=== PATIENT | female | born 1955 | race Caucasian/White ===

== ENCOUNTER 2017-04-18 19:47 | Emergency (ER) | payer BC ==
[2017-04-18 19:57] VITALS: BP 119/65
[2017-04-18] MEDS ORDERED: BUFFERED LIDOCAINE 10 ML SYRINGE SUBQ STA (20:02)
[2017-04-18] MEDS ORDERED: TETANUS/DIPHTHERIA/PERTUSSIS 0.5 ML SYRINGE IM ONE (20:02)
--- NOTE | 2017-04-18 20:03 | ED Physician Documentation ---
PD HPI UPPER EXT INJURY - Stated complaint Stated Complaint: FINGER INJ - Chief complaint Chief Complaint: Laceration - History obtained from History obtained from: Patient - History of Present Illness Location: Other (Right-handed woman with unclear tetanus status cut the second and third fingers of her right hand while driving a knife at home just prior to arrival.) Review of Systems Constitutional: denies: Fever, Chills GI: reports: Reviewed and negative : reports: Reviewed and negative PD PAST MEDICAL HISTORY - Past Medical History Past Medical History: No - Past Surgical History Ortho: Other - Present Medications Home Medications: Ambulatory Orders Medication Instructions Recorded Confirmed No Known Home Medications [No 04/18/17 04/18/17 Known Home Medications] - Allergies Allergies/Adverse Reactions: Allergies Allergy/AdvReac Type Severity Reaction Status Date / Time No Known Drug Allergies Allergy Verified 04/18/17 19:53 - Social History Does the pt smoke?: Yes Smoking Status: Current every day smoker Does the pt drink ETOH?: No Substance Use and Type: Marijuana - Immunizations Immunizations are current?: Yes PD ED PE NORMAL - Vitals Vital signs reviewed: Yes - General General: Alert and oriented X 3, No acute distress - Extremities Extremities: Other (She has lacerations on the dorsal radial surfaces of the second and third digits just distal to the PIP with normal neurovascular status distal to these. On exploration she has a tiny tendon libra in the extensor tendon of the third digit and a more significant but still less than 30% laceration on the second digit. Extensor tendon function in both digits is intact.) - Neuro Neuro: Alert and oriented X 3, Normal speech Results - Vitals Vitals: Vital Signs - 24 hr 04/18/17 19:49 Temperature 36.8 C Heart Rate 68 Respiratory 18 Rate Blood Pressure 119/65 O2 Saturation 98 Oxygen O2 Source Room air Procedures - Laceration (location) Second and third fingers Length in cm: 3 Wound type: Other (about 1cm 3rd digit and 2cm 2nd digit) Neurovascular status: Sensory intact, Motor intact, Vascular intact Tendon involvement: Tendon Injury Anesthesia: Lidocaine 1%, With bicarb Wound Preparation: Hibiclens, Irrigated copiously NS Skin layer closure: Nylon, Size #-0 - enter number (5-0), Sutures - enter # (8, 5 in the 2nd digit, 3 in the 3rd digit.) Other: Patient tolerated well, No complications, Neurovascular intact, Tetanus booster given Complexity: Simple - Splint (location) R hand Splint applied by: Physician, Tech Type of splint: Short arm, Other (radial gutter with 4inch orthoglass) PD MEDICAL DECISION MAKING - Consults Consults: Consulted (name) (Norberto Bishop by phone RE tendon lacs, ok to close skin/ splint and see in clinic.) Departure - Departure Disposition: 01 Home, Self Care Clinical Impression: Finger laceration Qualifiers: Encounter type: initial encounter Finger: unspecified finger Damage to nail status: without damage Foreign body presence: without foreign body Laterality: right Qualified Code(s): S61.219A - Laceration without foreign body of unspecified finger without damage to nail, initial encounter Condition: Good Record reviewed to determine appropriate education?: Yes Instructions: ED Laceration Hand Follow-Up: Norberto Bishop MD [Provider Admit Priv/Credential] - (3-5 days for wound check ( call tomorrow)_) Comments: Come back for any signs of infection which would include: Redness, swelling, drainage, increased pain, or fevers. Follow-up with your physician in 10-14 days for suture removal.
[2017-04-18] MEDS ORDERED: HYDROcod/ACET 5/325 Prepack 6 PO STA (20:52)
== END 2017-04-18 20:57 | disposition home or self-care (01) ==
LOC: ED 19:47
DX: S61.210A Laceration without foreign body of right index finger without damage to nail, initial encounter (principal); S61.212A Laceration without foreign body of right middle finger without damage to nail, initial encounter; W26.0XXA Contact with knife, initial encounter; Y93.G1 Activity, food preparation and clean up; Z23 Encounter for immunization
CPT/HCPCS: 12002; 90471; 99282; 99283

== ENCOUNTER 2017-09-30 11:02 | Outpatient (CLI) | payer BC ==
--- NOTE | 2017-10-14 16:28 | Mammography Report ---
Procedure Date: 09/30/2017 Accession Number: [id number] / [id number] Procedure: KRISTEL - Screening Mammo Dig Bilat CPT Code: FULL RESULT: EXAM: Screening Mammo Dig Bilat DATE: 09/30/2017 11:24 AM CLINICAL HISTORY: 62-year-old with history of late childbearing, family history of breast cancer, history of benign right breast biopsy for screening TECHNIQUE: Bilateral CC, laterally exaggerated CC, MLO views were obtained. COMPARISON: Films from [facility] dated 05/15/2009, 05/03/2008, 04/01/2007, 03/23/2006 FINDINGS: The breasts demonstrate heterogeneously dense fibroglandular parenchyma bilaterally. In the right inner central slightly upper breast, there is a questionable architectural distortion. Further evaluation with spot compression views and possible ultrasound is recommended. Coarse, typically benign calcifications are present. No suspicious masses, clustered microcalcifications, or regions of architectural distortion are identified. IMPRESSION: Incomplete examination RECOMMENDATION: Additional evaluation as above. BIRADS CATEGORY 0: Incomplete examination STANDARD QUALIFYING STATEMENTS: 1. This examination was reviewed with the aid of Computer-Aided Detection (CAD). 2. A negative or benign imaging report should not delay biopsy if clinically suspicious findings are present. Consider surgical consultation if warrented. More than 5% of cancers are not identified by imaging. 3. Dense breasts may obscure an underlying neoplasm.
== END 2017-09-30 11:03 | disposition home or self-care (01) ==
LOC: DI 11:02
PROVIDERS: ATTEND Internal Medicine
DX: Z12.31 Encounter for screening mammogram for malignant neoplasm of breast (principal); R92.8 Other abnormal and inconclusive findings on diagnostic imaging of breast; Z80.3 Family history of malignant neoplasm of breast
CPT/HCPCS: 77067

== ENCOUNTER 2017-10-19 14:16 | Outpatient (CLI) | payer OTHER ==
--- NOTE | 2017-10-19 16:59 | Mammography Report ---
Procedure Date: 10/19/2017 Accession Number: [id number] / [id number] Procedure: KRISTEL - Diag Special Views Dig RT CPT Code: FULL RESULT: EXAM: Diag Special Views Dig RT DATE: 10/19/2017 3:09 PM CLINICAL HISTORY: 62-year-old female with history of late childbearing, family history of breast cancer and history of benign right breast biopsy now recalled for diagnostic mammogram based on the right breast architectural distortion. TECHNIQUE: Right spot MLO, spot CC, ML views COMPARISON: None FINDINGS: The breasts demonstrate heterogeneously dense fibroglandular parenchyma bilaterally. The previously seen architectural distortion is identified as summation of normal breast structures on the compression CC and MLO views. Right breast contains typically benign calcifications. IMPRESSION: Benign findings, return to screening. RECOMMENDATION: Recommend routine annual Screening mammography unless otherwise clinically indicated. BIRADS CATEGORY 2: Benign findings STANDARD QUALIFYING STATEMENTS: 1. This examination was reviewed with the aid of Computer-Aided Detection (CAD). 2. A negative or benign imaging report should not delay biopsy if clinically suspicious findings are present. Consider surgical consultation if warrented. More than 5% of cancers are not identified by imaging. 3. Dense breasts may obscure an underlying neoplasm.
== END 2017-10-19 14:17 | disposition home or self-care (01) ==
LOC: DI 14:16
PROVIDERS: ATTEND Registered Nurse
DX: R92.8 Other abnormal and inconclusive findings on diagnostic imaging of breast (principal); Z80.3 Family history of malignant neoplasm of breast

== ENCOUNTER 2018-03-14 12:40 | Outpatient (CLI) | payer OTHER ==
--- NOTE | 2018-03-15 13:27 | MRI Report ---
Reason: DORSALGIA, UNSPECIFIED,MULTILEVEL SPONOHLETIC BUD Procedure Date: 03/14/2018 Accession Number: [id number] / [id number] Procedure: MRI - Cervical Spine W/O CPT Code: FULL RESULT: EXAM: MRI CERVICAL SPINE WITHOUT CONTRAST EXAM DATE: 03/14/2018 01:13 PM. CLINICAL HISTORY: Dorsalgia. COMPARISONS: None. TECHNIQUE: Multiplanar, multisequence T1-weighted and fluid-sensitive sequences of the cervical spine without contrast. Other: None. FINDINGS: Neurologic Structures: The visualized posterior fossa structures are unremarkable. No signal abnormality in the visualized spinal cord. Alignment: No scoliosis or spondylolisthesis. Bone Marrow: No fractures. Type I endplate change is at C4-C5 and C5-C6. Interspace Levels/Facets: All visualized intervertebral disk are desiccated. C1-C2: Unremarkable. C2-C3: Mild bilateral facet osteoarthritis causes mild right foraminal narrowing. C3-C4: A mild posterior disk/osteophyte complex and mild left facet osteoarthritis causes mild spinal canal, mild right foraminal, and moderate left foraminal narrowing. C4-C5: Severe disk height loss is accompanied by anterior endplate spurring. A posterior disk/osteophyte complex and mild ligamentum flavum hypertrophy combined with mild bilateral facet hypertrophy cause moderate spinal canal, moderate right foraminal, and severe left foraminal narrowing. There is flattening of the anterior cord. C5-C6: A mild posterior disk/osteophyte complex, mild ligamentum flavum hypertrophy, and moderate bilateral facet hypertrophy cause moderate spinal canal, moderate right foraminal, and severe left foraminal narrowing. There is indentation on the anterior cord. C6-C7: Anterior endplate spurring is present. A mild posterior disk/osteophyte complex causes mild spinal canal and moderate bilateral foraminal narrowing. C7-T1: A minimal posterior disk/osteophyte complex and ligamentum flavum hypertrophy cause minimal spinal canal narrowing. Musculature: Normal. No edema or fatty atrophy. Other: The paravertebral and prevertebral soft tissues are normal. IMPRESSION: 1. Mild spinal canal, mild right foraminal, and moderate left foraminal narrowing at C3-C4 due to disk and posterior element degenerative changes. 2. Moderate spinal canal, moderate right foraminal, and severe left foraminal narrowing at C4-C5 due to disk and posterior element degenerative changes. 3. Moderate spinal canal, moderate right foraminal, and severe left foraminal narrowing at C5-C6 due to disk and posterior element degenerative changes. 4. Mild spinal canal and moderate bilateral foraminal narrowing at C6-C7 due to a disk/osteophyte complex. RADIA
== END 2018-03-14 12:41 | disposition home or self-care (01) ==
LOC: DI 12:40
PROVIDERS: ATTEND Internal Medicine
DX: M47.9 Spondylosis, unspecified (principal); M50.31 Other cervical disc degeneration, high cervical region; M48.02 Spinal stenosis, cervical region
CPT/HCPCS: 72141

== ENCOUNTER 2019-06-01 08:37 | Outpatient (CLI) | payer MEDICARE, OTHER ==
--- NOTE | 2019-06-03 08:09 | MRI Report ---
Reason: PAIN IN RT SHLDR Procedure Date: 06/01/2019 Accession Number: [id number] / [id number] Procedure: MRI - Shoulder RT W/O CPT Code: Final Report FULL RESULT: EXAM: RIGHT SHOULDER MRI WITHOUT CONTRAST EXAM DATE: 06/01/2019 09:37 AM. CLINICAL HISTORY: Pain in right shoulder. COMPARISON: None. TECHNIQUE: Multiplanar, multisequence T1-weighted and fluid-sensitive sequences of the shoulder without contrast. Other: None. FINDINGS: Rotator cuff: Ill-defined partial-thickness distal bursal surface and insertional tear of the supraspinatus measures approximately 1 cm in the medial to lateral and anteroposterior dimensions. This tear is very ill-defined but appears to involve approximately 50% of the thickness of the distal tendon. Some of this could represent severe edema associated with calcific tendinitis. There appears to be a small calcification within the distal margin of the tendon anteriorly. Moderate thickening and edema involving remaining distal fibers of the posterior supraspinatus as well as upper fibers of the infraspinatus. No rotator cuff muscle atrophy or fatty replacement. Long head biceps tendon: Intact demonstrating normal course, signal and morphology. Labrum: Ill-defined increased signal within the substance of the superior labrum at the level of the biceps anchor. A discrete tear is not identified on this non-arthrographic study. Bones and articular surfaces: No significant articular cartilage defects are seen. Subcortical cyst formation adjacent to the supraspinatus and superficial subscapularis insertions. Acromioclavicular joint: Moderate degenerative change. Type II acromion. IMPRESSION: 1. Intermediate grade ill-defined partial-thickness distal bursal surface and insertional tear of the supraspinatus with associated calcific tendinitis. 2. Moderate tendinosis involving the infraspinatus and posterior fibers of the supraspinatus. 3. Moderate degenerative change at the acromioclavicular joint. RADIA
== END 2019-06-01 08:38 | disposition home or self-care (01) ==
LOC: DI 08:37
PROVIDERS: ATTEND Registered Nurse
DX: M75.101 Unspecified rotator cuff tear or rupture of right shoulder, not specified as traumatic (principal); M75.31 Calcific tendinitis of right shoulder; M75.81 Other shoulder lesions, right shoulder; M19.011 Primary osteoarthritis, right shoulder

== ENCOUNTER 2020-04-25 21:06 | Emergency (ER) | payer MEDICARE ==
--- NOTE | 2020-04-25 21:20 | ED Physician Documentation ---
PD HPI FEMALE - Stated complaint Stated Complaint: FEMALE - Chief complaint Chief Complaint: UTI - History obtained from History obtained from: Patient - History of Present Illness Timing - onset: Today Timing - details: Abrupt onset Associated symptoms: Dysuria, Urinary frequency. No: Fever Similar symptoms before: Has not had sx before Recently seen: Not recently seen - Additional information Additional information: c/o sudden onset urinary frequency and burning dysuria since earlier today Review of Systems Constitutional: reports: Reviewed and negative : reports: Dysuria, Frequency Musculoskeletal: denies: Back pain PD PAST MEDICAL HISTORY - Past Medical History Past Medical History: No - Past Surgical History Ortho: Other - Present Medications Home Medications: Ambulatory Orders Medication Instructions Recorded Confirmed Nitrofurantoin Monohyd/M-Cryst 100 mg PO BID #10 capsule 04/25/20 [Macrobid 100 mg Capsule] Phenazopyridine HCl [Pyridium] 200 mg PO TID PRN #6 tablet 04/25/20 - Allergies Allergies/Adverse Reactions: Allergies Allergy/AdvReac Type Severity Reaction Status Date / Time No Known Drug Allergies Allergy Verified 04/18/17 19:53 - Social History Does the pt smoke?: Yes Smoking Status: Current every day smoker Does the pt drink ETOH?: No - Immunizations Immunizations are current?: Yes PD ED PE NORMAL - Vitals Vital signs reviewed: Yes - General General: Alert and oriented X 3, No acute distress, Well developed/nourished - Abdomen Abdomen: Soft, Non tender - Back Back: No CVA TTP Results - Vitals Vitals: Vital Signs - 24 hr 04/25/20 04/25/20 21:11 22:51 Temperature 36.5 C 36.5 C Heart Rate 67 65 Respiratory 14 15 Rate Blood Pressure 154/73 H 147/75 H O2 Saturation 97 98 Oxygen O2 Source Room air - Labs Labs: Microbiology 04/25/20 21:29 Urine Culture - Preliminary Urine,Clean Catch CULTURE IN PROGRESS. RESULTS TO FOLLOW. Laboratory Tests 04/25/20 21:29 Urine Color YELLOW Urine Clarity CLEAR Urine pH 7.0 Ur Specific [place] 1.010 Urine Protein NEGATIVE Urine Glucose (UA) NEGATIVE Urine Ketones NEGATIVE Urine Occult Blood LARGE H Urine Nitrite NEGATIVE Urine Bilirubin NEGATIVE Urine Urobilinogen 0.2 (NORMAL) Ur Leukocyte Esterase SMALL H Urine RBC >25 Urine WBC 11-25 H Ur Squamous Epith Cells RARE Squamous Urine Bacteria Rare Ur Microscopic Review INDICATED Urine Culture Comments INDICATED PD MEDICAL DECISION MAKING - ED course Complexity details: reviewed results, considered differential, d/w patient Departure - Departure Disposition: 01 Home, Self Care Clinical Impression: Urinary tract infection Condition: Good Instructions: ED UTI Cystitis Female Follow-Up: VASILE JOHNSTON, CHIEF MEDICAL TECHNOLOGIST [Primary Care Provider] - (3-4 days if symptoms persist) Prescriptions: Nitrofurantoin Monohyd/M-Cryst [Macrobid 100 mg Capsule] 100 mg PO BID #10 capsule Phenazopyridine HCl [Pyridium] 200 mg PO TID PRN #6 tablet PRN Reason: dysuria Discharge Date/Time: 04/25/20 22:51
[2020-04-25 21:43] LABS: BILIRUBIN,URINE NEGATIVE (NEGATIVE); CLARITY,URINE CLEAR (CLEAR); GLUCOSE, URINE (UA) NEGATIVE (NEGATIVE); KETONES,URINE (UA) NEGATIVE (NEGATIVE); LEUKOCYTE ESTERASE, URINE SMALL (NEGATIVE); NITRITE,URINE NEGATIVE (NEGATIVE); OCCULT BLOOD,URINE LARGE (NEGATIVE); PROTEIN,URINE NEGATIVE (NEGATIVE); UROBILINOGEN,URINE 0.2 (NORMAL) E.U./dL (NORMAL)
[2020-04-25 21:49] LABS: BACTERIA,URINE Rare /HPF (None Seen); RBC,URINE >25 /HPF (0-5); SQUAMOUS EPITHELIAL CELL,UR RARE Squamous (<= Few)
[2020-04-25] MEDS ORDERED: NITROFURANTOIN MACRO 100 MG CAPSULE PO STA (22:45)
[2020-04-25] MEDS ORDERED: PHENAZOPYRIDINE 100 MG TABLET PO STA (22:45)
[2020-04-25 22:53] VITALS: BP 147/75
== END 2020-04-25 22:51 | disposition home or self-care (01) ==
LOC: ED 21:06
DX: N39.0 Urinary tract infection, site not specified (principal); F17.200 Nicotine dependence, unspecified, uncomplicated
CPT/HCPCS: 81001; 87086; 87181; 99283; A9270; 81003

== ENCOUNTER 2021-03-31 03:46 | Emergency (ER) | payer MEDICARE ==
[2021-03-31 04:44] LABS: BASOPHILS % (AUTO) 0.2 %; EOSINOPHILS # (AUTO) 0.1 10^3/uL (0.0-0.7); EOSINOPHILS % (AUTO) 0.4 %; HCT - HEMATOCRIT 43.1 % (37.0-47.0); LYMPHOCYTES # (AUTO) 0.9 10^3/uL (1.5-3.5); LYMPHOCYTES % (AUTO) 6.6 %; MEAN CORPUSCULAR HEMOGLOBIN 29.8 pg (27.0-31.0); MEAN CORPUSCULAR HGB CONC 32.5 g/dL (32.0-36.0); MEAN CORPUSCULAR VOLUME 91.7 fL (81.0-99.0); MEAN PLATELET VOLUME 9.6 fL (7.9-10.8); MONOCYTES # (AUTO) 0.8 10^3/uL (0.0-1.0); NEUTROPHILS # (AUTO) 11.4 10^3/uL (1.5-6.6); NEUTROPHILS % (AUTO) 86.5 %; PLT - PLATELET COUNT 203 10^3/uL (130-450); RED CELL DISTRIBUTION WIDTH 14.2 % (12.0-15.0); WHITE BLOOD COUNT 13.2 x10^3/uL (4.8-10.8)
[2021-03-31 04:57] LABS: ALBUMIN 3.8 g/dL (3.2-5.5); ALBUMIN/GLOBULIN RATIO 1.3 (1.0-2.2); BILIRUBIN,TOTAL 0.7 mg/dL (0.2-1.0); CALCIUM 8.5 mg/dL (8.5-10.3); CREATININE 0.6 mg/dL (0.4-1.0); POTASSIUM 3.9 mmol/L (3.5-5.0); TOTAL PROTEIN 6.8 g/dL (6.7-8.2)
[2021-03-31 05:04] LABS: HCG UR QUAL NEGATIVE
[2021-03-31] MEDS ORDERED: MAG HYDROX/AL HYDROX/SIMETH 30 ML UDC PO STA (05:11)
[2021-03-31] MEDS ORDERED: LIDOCAINE VISCOUS 2% 15 ML UDC MM STA (05:11)
[2021-03-31] MEDS ORDERED: diphenhydrAMINE ELIXIR 25 MG/10 ML UDC PO STA (05:12)
--- NOTE | 2021-03-31 05:14 | ED Physician Documentation ---
History of Present Illness - Stated complaint Stated Complaint: EPIGASTRIC PAIN - Chief complaint Chief Complaint: Cardiac - History obtained from History obtained from: Patient - Additonal information Additional information: 65yF with pmh gerd and arthritis, other colon healthy, with no FH cardiac disease, marijuana smoker (but no nicotine), p/w epigastric pain waking her from sleep around 1:30am a/w bloating. constant, burning, radiating upward, a/w mild nausea but no vomiting. denies fever, cp, soa, diarrhea. patient received zofran en route from ems with improvement. pain initially was 8/10 and is now /10. Review of Systems Ten Systems: 10 systems reviewed and negative Constitutional: denies: Fever, Chills Cardiac: denies: Chest pain / pressure Respiratory: denies: Dyspnea, Cough GI: reports: Abdominal Pain, Nausea. denies: Vomiting PD PAST MEDICAL HISTORY - Past Medical History Past Medical History: Yes Other Past Medical History: R lower leg FX; sMOKE S MARIJUANA REGULARLY BUT NOT ABUSE - Past Surgical History Past Surgical History: Yes Ortho: Other - Present Medications Home Medications: Ambulatory Orders Medication Instructions Recorded Confirmed No Known Home Medications 03/31/21 03/31/21 - Allergies Allergies/Adverse Reactions: Allergies Allergy/AdvReac Type Severity Reaction Status Date / Time No Known Drug Allergies Allergy Verified 03/31/21 04:09 - Social History Does the pt smoke?: Yes Smoking Status: Current every day smoker Does the pt drink ETOH?: No Does the pt have substance abuse?: No - Immunizations Immunizations are current?: Yes - POLST Patient has POLST: No PD ED PE NORMAL - Vitals Vital signs reviewed: Yes - General General: Alert and oriented X 3, No acute distress, Well developed/nourished - HEENT HEENT: Atraumatic, PERRL, EOMI - Neck Neck: Supple, no meningeal sign - Cardiac Cardiac: RRR - Respiratory Respiratory: No respiratory distress, Clear bilaterally - Abdomen Abdomen: Non tender, Non distended - Rectal Rectal: Deferred - Derm Derm: Normal color - Extremities Extremities: No deformity - Neuro Neuro: No motor deficit, No sensory deficit - Psych Psych: Normal mood, Normal affect Results - Vitals Vitals: Vital Signs - 24 hr 03/31/21 03/31/21 03/31/21 03:45 03:50 04:23 Temperature 36.2 C L Heart Rate 69 63 Respiratory 24 16 Rate Blood Pressure 131/79 H 131/79 H Blood Pressure 131/79 H [Right] O2 Saturation 100 100 03/31/21 05:01 Temperature Heart Rate 68 Respiratory 15 Rate Blood Pressure 128/77 Blood Pressure [Right] O2 Saturation 100 Oxygen O2 Source Room air - EKG (time done) 0359 Rate: Rate (enter#) (62) Rhythm: NSR [place]: Normal Intervals: Normal [place] QRS: Normal Ischemia: Normal ST segments - Labs Labs: Laboratory Tests 03/31/21 03/31/21 03/31/21 04:37 04:37 04:37 WBC 13.2 H RBC 4.70 Hgb 14.0 Hct 43.1 MCV 91.7 MCH 29.8 MCHC 32.5 RDW 14.2 Plt Count 203 MPV 9.6 Neut # (Auto) 11.4 H Lymph # (Auto) 0.9 L Elliott # (Auto) 0.8 Eos # (Auto) 0.1 Baso # (Auto) 0.0 Absolute Nucleated RBC 0.00 Nucleated RBC % 0.0 Sodium 141 Potassium 3.9 Chloride 105 Carbon Dioxide 28 Anion Gap 8.0 BUN 20 Creatinine 0.6 Estimated GFR (MDRD) 100 Glucose 91 Calcium 8.5 Total Bilirubin 0.7 AST 21 ALT 19 Alkaline Phosphatase 68 Troponin I High Sens 2.5 Total Protein 6.8 Albumin 3.8 Globulin 3.0 Albumin/Globulin Ratio 1.3 Lipase 158 H Urine HCG, Qual 03/31/21 04:50 WBC RBC Hgb Hct MCV MCH MCHC RDW Plt Count MPV Neut # (Auto) Lymph # (Auto) Elliott # (Auto) Eos # (Auto) Baso # (Auto) Absolute Nucleated RBC Nucleated RBC % Sodium Potassium Chloride Carbon Dioxide Anion Gap BUN Creatinine Estimated GFR (MDRD) Glucose Calcium Total Bilirubin AST ALT Alkaline Phosphatase Troponin I High Sens Total Protein Albumin Globulin Albumin/Globulin Ratio Lipase Urine HCG, Qual NEGATIVE PD MEDICAL DECISION MAKING - ED course ED course: 65yF p/w epigastric pain and nausea, relieved in the ED after zofran and magic mouthwash. HEART score 1 (age). very slight elevaton in pancreatic function tests. d/w patient. return precautions given. plan to f/u with pmd for referral to GI. Departure - Departure Disposition: Home, Self Care Clinical Impression: Epigastric pain, Nausea Condition: Good Instructions: ED Abdominal Pain Female Non-Specific Abdominal Pain Comments: You were seen in the emergency department for abdominal pain. Your labwork, ekg, and chest xray showed no emergent cause for your symptoms. You do have mild inflammation to the pancreas, which is located in the area of pain,so I recommend avoiding alcohol until you follow up with your primary doctor for referral to GI. This may also be caused by stomach issues. Please return to the ED if you develop fevers, new or worsening symptoms or have other concerns.
[2021-03-31 05:43] VITALS: BP 108/60
--- NOTE | 2021-03-31 08:01 | XRAY Report ---
PROCEDURE: Chest 1 View X-Ray INDICATIONS: epigastric pain TECHNIQUE: One view of the chest was acquired. COMPARISON: None FINDINGS: Surgical changes and devices: None. Lungs and pleura: No pleural effusions or pneumothorax. Lungs are clear. Mediastinum: Mediastinal contours appear normal. Heart size is normal. Bones and chest wall: No suspicious bony lesions. Overlying soft tissues appear unremarkable. IMPRESSION: No acute pulmonary process. The above findings are concordant with preliminary report. Reviewed by: Salina Reilly MD on 03/31/2021 8:00 AM [facility] Approved by: Salina Reilly MD on 03/31/2021 8:00 AM [facility] Station ID: [id number]
== END 2021-03-31 05:45 | disposition home or self-care (01) ==
LOC: EDUNIT# → SUPCPDRO 03:46 → ED 03:46
DX: R10.13 Epigastric pain (principal); R11.0 Nausea; R74.8 Abnormal levels of other serum enzymes
CPT/HCPCS: 36415; 71045; 80053; 81025; 83690; 84484; 85025; 93005; 99284; A9270

== ENCOUNTER 2021-09-28 08:01 | Emergency (ER) | payer MEDICARE ==
[2021-09-28] MEDS ORDERED: ONDANSETRON ODT 4 MG TABLET TL STA (08:08)
--- NOTE | 2021-09-28 08:22 | ED Physician Documentation ---
PD HPI ABD PAIN - Stated complaint Stated Complaint: ABD PAIN - Chief complaint Chief Complaint: Abd Pain - Additional information Additional information: Patient is a 66-year-old female presenting to the emergency department with chief complaint of abdominal pain. Reports epigastric abdominal pain that she has had intermittently for greater than the last 50 years that has been particularly bad for the last 2 days. Reports recent mastectomy 2 days ago for breast cancer performed at [facility] in [place]. Reports has been using Pepcid regularly for the last 4 months. Denies other abdominal surgeries. Denies fever, chills, chest pain, shortness of breath, nausea, vomiting, diarrhea, constipation. Review of Systems Ten Systems: 10 systems reviewed and negative Constitutional: denies: Fever Eyes: denies: Loss of vision Ears: denies: Loss of hearing Nose: denies: Rhinorrhea / runny nose Throat: denies: Dental pain / toothache Cardiac: denies: Chest pain / pressure GI: reports: Abdominal Pain. denies: Abdominal Swelling, Nausea, Constipation, Diarrhea, Hematemesis PD PAST MEDICAL HISTORY - Past Medical History GI: GERD - Past Surgical History Past Surgical History: Yes Ortho: Other - Present Medications Home Medications: Ambulatory Orders Medication Instructions Recorded Confirmed Famotidine [Pepcid] 20 mg PO DAILY 09/28/21 09/28/21 Lidocaine Viscous 2% [Xylocaine 5 ml MM Q4H #100 ml 09/28/21 Viscous 2%] - Allergies Allergies/Adverse Reactions: Allergies Allergy/AdvReac Type Severity Reaction Status Date / Time No Known Drug Allergies Allergy Verified 03/31/21 04:09 - Social History Does the pt smoke?: Yes Smoking Status: Current every day smoker Does the pt drink ETOH?: No Does the pt have substance abuse?: No - Immunizations Immunizations are current?: Yes - POLST Patient has POLST: No PD ED PE NORMAL - Vitals Vital signs reviewed: Yes - General General: Alert and oriented X 3 - HEENT HEENT: Atraumatic - Neck Neck: Supple, no meningeal sign - Cardiac Cardiac: RRR - Respiratory Respiratory: No respiratory distress - Abdomen Abdomen: Normal bowel sounds - Female Female : Deferred - Rectal Rectal: Deferred - Back Back: No CVA TTP - Derm Derm: Other (Right-sided mastectomy site is identified. Incisions are clean, dry, ROBYN drains in place with serosanguineous fluid.) Results - Vitals Vitals: Vital Signs - 24 hr 09/28/21 09/28/21 09/28/21 08:05 10:16 11:39 Temperature 36.8 C 36.1 C L Heart Rate 83 71 69 Respiratory 19 16 16 Rate Blood Pressure 158/87 H 140/76 H 129/82 H O2 Saturation 100 100 99 09/28/21 12:17 Temperature 36.7 C Heart Rate 64 Respiratory 16 Rate Blood Pressure 118/81 H O2 Saturation 99 Oxygen O2 Source Room air - Labs Labs: Laboratory Tests 09/28/21 09/28/21 09/28/21 09:11 09:11 09:11 WBC 7.3 RBC 4.26 Hgb 12.7 Hct 38.3 MCV 89.9 MCH 29.8 MCHC 33.2 RDW 14.3 Plt Count 201 MPV 10.1 Neut # (Auto) 5.1 Lymph # (Auto) 1.6 [place] # (Auto) 0.4 Eos # (Auto) 0.1 Baso # (Auto) 0.1 Absolute Nucleated RBC 0.00 Nucleated RBC % 0.0 Sodium 140 Potassium 3.8 Chloride 105 Carbon Dioxide 25 Anion Gap 10.0 BUN 11 Creatinine 0.7 Estimated GFR (MDRD) 83 L Glucose 109 H Calcium 9.0 Total Bilirubin 0.8 AST 18 ALT 14 Alkaline Phosphatase 62 Troponin I High Sens 4.4 Total Protein 6.7 Albumin 4.1 Globulin 2.6 Albumin/Globulin Ratio 1.6 Lipase 46 Urine Color Urine Clarity Urine pH Ur Specific [place] Urine Protein Urine Glucose (UA) Urine Ketones Urine Occult Blood Urine Nitrite Urine Bilirubin Urine Urobilinogen Ur Leukocyte Esterase Ur Microscopic Review Urine Culture Comments 09/28/21 09:37 WBC RBC Hgb Hct MCV MCH MCHC RDW Plt Count MPV Neut # (Auto) Lymph # (Auto) [place] # (Auto) Eos # (Auto) Baso # (Auto) Absolute Nucleated RBC Nucleated RBC % Sodium Potassium Chloride Carbon Dioxide Anion Gap BUN Creatinine Estimated GFR (MDRD) Glucose Calcium Total Bilirubin AST ALT Alkaline Phosphatase Troponin I High Sens Total Protein Albumin Globulin Albumin/Globulin Ratio Lipase Urine Color YELLOW Urine Clarity CLEAR Urine pH 7.0 Ur Specific [place] 1.010 Urine Protein NEGATIVE Urine Glucose (UA) NEGATIVE Urine Ketones TRACE Urine Occult Blood TRACE-INTA Urine Nitrite NEGATIVE Urine Bilirubin NEGATIVE Urine Urobilinogen 0.2 (NORMAL) Ur Leukocyte Esterase NEGATIVE Ur Microscopic Review NOT INDICATED Urine Culture Comments NOT INDICATED PD MEDICAL DECISION MAKING - ED course Complexity details: reviewed results, d/w patient ED course: To the emergency department with epigastric abdominal pain in setting of recent right-sided mastectomy. Afebrile, hematin stable on arrival to the emergency department. Some mild epigastric tenderness to palpation without right upper quadrant tenderness. Labs obtained within normal limits are nonactionable. CT noncontrast was obtained of the chest, abdomen and pelvis. Noncontrast imaging was chosen in light of the recent critical shortage of IV contrast material. This however was negative for any indications of acute or life-threatening pathology in the chest, abdomen or pelvis. Patient was given medication for pain control and a GI cocktail which significantly helped her symptoms. She does report that she has had similar symptoms in the past, currently takes Pepcid, is intolerant to omeprazole and PPI, and does have follow-up with gastroenterology for endoscopy in the coming weeks. At this time I will discharge for follow-up with both primary care and gastroenterology as needed. Otherwise clear return precautions and follow-up instructions were given prior to discharge. Departure - Departure Disposition: Home, Self Care Clinical Impression: Abdominal pain Prescriptions: Lidocaine Viscous 2% [Xylocaine Viscous 2%] 5 ml MM Q4H #100 ml Comments: Thank you for allowing us to care for you today at [facility]. All the testing performed in the emergency department including your blood work and the CT scan of your chest, abdomen and pelvis were all very reassuring. I will be discharging you with some viscous lidocaine to take for your symptoms. Please continue your previously prescribed Pepcid. Please avoid all nonsteroidal anti-inflammatory medications and alcohol. Please avoid excessively spicy foods. Please keep your follow-up appointment with your program management manager. If it anytime you develop any new or worsening symptoms please not hesitate to return to the emergency department.
[2021-09-28 09:21] LABS: BASOPHILS # (AUTO) 0.1 10^3/uL (0.0-0.1); BASOPHILS % (AUTO) 0.8 %; EOSINOPHILS # (AUTO) 0.1 10^3/uL (0.0-0.7); EOSINOPHILS % (AUTO) 1.4 %; HCT - HEMATOCRIT 38.3 % (37.0-47.0); HGB - HEMOGLOBIN 12.7 g/dL (12.0-16.0); LYMPHOCYTES # (AUTO) 1.6 10^3/uL (1.5-3.5); LYMPHOCYTES % (AUTO) 22.3 %; MEAN CORPUSCULAR HEMOGLOBIN 29.8 pg (27.0-31.0); MEAN CORPUSCULAR HGB CONC 33.2 g/dL (32.0-36.0); MEAN CORPUSCULAR VOLUME 89.9 fL (81.0-99.0); MEAN PLATELET VOLUME 10.1 fL (7.9-10.8); MONOCYTES # (AUTO) 0.4 10^3/uL (0.0-1.0); MONOCYTES % (AUTO) 4.8 %; NEUTROPHILS # (AUTO) 5.1 10^3/uL (1.5-6.6); NEUTROPHILS % (AUTO) 70.6 %; PLT - PLATELET COUNT 201 10^3/uL (130-450); RED BLOOD COUNT 4.26 10^6/uL (4.20-5.40); RED CELL DISTRIBUTION WIDTH 14.3 % (12.0-15.0); WHITE BLOOD COUNT 7.3 x10^3/uL (4.8-10.8)
[2021-09-28 09:36] LABS: ALBUMIN 4.1 g/dL (3.2-5.5); ALBUMIN/GLOBULIN RATIO 1.6 (1.0-2.2); BILIRUBIN,TOTAL 0.8 mg/dL (0.2-1.0); CREATININE 0.7 mg/dL (0.4-1.0); POTASSIUM 3.8 mmol/L (3.5-5.0); TOTAL PROTEIN 6.7 g/dL (6.7-8.2)
[2021-09-28 09:45] LABS: BILIRUBIN,URINE NEGATIVE (NEGATIVE); GLUCOSE, URINE (UA) NEGATIVE (NEGATIVE); KETONES,URINE (UA) TRACE mg/dL (NEGATIVE); LEUKOCYTE ESTERASE, URINE NEGATIVE (NEGATIVE); NITRITE,URINE NEGATIVE (NEGATIVE); OCCULT BLOOD,URINE TRACE-INTA (NEGATIVE); PROTEIN,URINE NEGATIVE (NEGATIVE); UROBILINOGEN,URINE 0.2 (NORMAL) E.U./dL (NORMAL)
--- NOTE | 2021-09-28 09:46 | CT Report ---
PROCEDURE: CHEST WO INDICATIONS: Epigastric pain, recent Right-sided mastectomy TECHNIQUE: Noncontrast 1mm axial images were acquired from the pulmonary apices to the posterior costophrenic an gles. Axial 5 mm soft tissue kernel reconstructions were performed as well as 8 mm axial MIP and cor onal and sagittal 5 mm reformations. For radiation dose reduction, the following was used: automate d exposure control, adjustment of mA and/or kV according to patient size. COMPARISON: Of status post median sternotomy and CABG. Small left-sided pleural effusion. Left basil ar opacity. On the upper limits of normal, unchanged. Small left-sided pleural effusion along with le ft basilar opacity which may represent atelectasis versus developing consolidation. FINDINGS: Image quality: Excellent. Lungs and pleura: No acute air space opacities. No pleural effusions or pneumothorax. Thin-walled c yst within the left upper lobe likely representing sequela of remote trauma or infection. Mild left b asilar atelectasis. Central and peripheral airways are patent and normal in caliber. 3 mm subpleural triangular shaped nodular density of the anterior inferior aspect of the left upper lobe likely repr esenting small region of atelectasis versus small lymph node. 4 mm intrafissural lymph node noted elaina ng the left major fissure inferiorly. No suspicious pulmonary nodules. Mediastinum: Heart size is normal. Minimal coronary vascular calcifications. No pericardial effusion . No mediastinal adenopathy by size criteria. Thoracic aorta and central pulmonary arteries are nor mal in size. Esophagus is normal in caliber. No hiatal hernia. Bones and chest wall: No suspicious bony lesions. No vertebral body compression fractures. No axil noel or supraclavicular adenopathy by size criteria. The thyroid is normal in size and there are no incidental findings. Postsurgical changes of right mastectomy. Surgical drain is noted within the sub cutaneous soft tissues. There is subcutaneous emphysema noted along the right chest wall. No focal fl uid collection. Abdomen: Please see same day CT abdomen and pelvis for findings. IMPRESSION: Postsurgical changes of the right chest wall status post mastectomy with surgical drain noted. There is subcutaneous emphysema without focal fluid collection. No acute intrathoracic abnormality. Minimal coronary vascular calcifications. Reviewed by: Nate Jo DO on 09/28/2021 8:45 AM SARA Approved by: Nate Jo DO on 09/28/2021 8:45 AM SARA Station ID: [id number]
[2021-09-28 09:48] LABS: CLARITY,URINE CLEAR (CLEAR)
--- NOTE | 2021-09-28 09:54 | CT Report ---
PROCEDURE: Abdomen/Pelvis WO INDICATIONS: Abdominal pain TECHNIQUE: Noncontrast 5 mm thick sections acquired from the diaphragms to the symphysis. 5 mm coronal and sagi ttal reformats were then performed. For radiation dose reduction, the following was used: automated exposure control, adjustment of mA and/or kV according to patient size. COMPARISON: Same-day chest CT.. FINDINGS: Image quality: Excellent. ABDOMEN: Lung bases: Please see same day chest CT for findings. Solid organs: Liver and spleen are normal in size. Gallbladder dilated without wall thickening, rad iopaque stones, or surrounding inflammation. Pancreas is normal in contours. No adrenal nodules. K idneys are normal in size, without hydronephrosis or nephrolithiasis. Peritoneum and bowel: Stomach and small bowel are unremarkable within the limits of this noncontrast examination. No evidence of obstruction. Appendix is normal. Large bowel is unremarkable. No evidence of ascites or pneumoperitoneum. Nodes and vessels: No retroperitoneal or mesenteric adenopathy by size criteria. Aorta and inferior vena cava are normal in caliber. Miscellaneous: No ventral hernias. Postsurgical changes of the right chest wall better depicted on comparison chest CT. PELVIS: Genitourinary: Bladder wall thickness is normal. Miscellaneous: No inguinal hernias or adenopathy. Bones: No suspicious bony lesions. Degenerative changes of the spine worse at L4-L5 where there is near complete intervertebral disc space loss. No acute osseous abnormality. No vertebral body erwin ashu fractures. IMPRESSION: No acute intra-abdominal/pelvic abnormality to explain given symptoms. Reviewed by: Nate Jo DO on 09/28/2021 8:53 AM SARA Approved by: Nate Jo DO on 09/28/2021 8:53 AM SARA Station ID: [id number]
[2021-09-28] MEDS ORDERED: MORPHINE 2 MG/ML CARPUJECT IVP STA (10:22)
[2021-09-28] MEDS ORDERED: GI COCKTAIL 120 ML BOTTLE PO PRN (10:23)
[2021-09-28 12:18] VITALS: BP 118/81
== END 2021-09-28 12:35 | disposition home or self-care (01) ==
LOC: ED 08:01
DX: R10.13 Epigastric pain (principal); F17.200 Nicotine dependence, unspecified, uncomplicated
CPT/HCPCS: 36415; 71250; 74176; 80053; 81003; 83690; 84484; 85025; 93005; 99282; 99284; A9270; Q0162; 81001; 87086

== ENCOUNTER 2023-04-16 13:00 | Outpatient (CLI) | payer MEDICARE ==
--- NOTE | 2023-04-18 10:57 | DEXA Report ---
PROCEDURE: Dexa Spine and/or Hip INDICATIONS: OSTEOPENIA TECHNIQUE: Dual energy x-ray absorptiometry (DXA) was performed on a [employer] System. Regions measur ed are the AP Spine, femoral neck, and if needed forearm. COMPARISON: DEXA spine dated 11/06/2021 FINDINGS: Lumbar Spine: Bone Mineral Density 1.002 g/cm/cm,T score -1.5. Previously -1.1 on study dated 11/06/2021 Left Femoral Neck: Bone Mineral Density 0.837 g/cm/cm, T score -1.4. Previously -1.5. Left Hip: Bone Mineral Density 0.809 g/cm/cm,T score -1.6. Previously -1.1. (T score greater or equal to -1.0: NORMAL) (T score from -1.1 to -2.4: OSTEOPENIA) (T score less than or equal to -2.5 to: OSTEOPOROSIS) Impression: By WHO criteria, this patient has low bone density (osteopenia). Osteopenia of the lumbar spine. Osteopenia of the hip. Patients with diagnosis of osteoporosis or osteopenia should have regular bone mineral density assess ment. For those eligible for Medicare, routine testing is allowed once every 2 years. Testing frequ ency can be increased for patients who have rapidly progressing disease or for those who are receivin g medical therapy to restore bone mass. Reviewed by: Lucy Easley MD on 04/18/2023 10:56 AM PST Approved by: Lucy Easley MD on 04/18/2023 10:56 AM PST Station ID: [id number]
== END 2023-04-16 13:01 | disposition home or self-care (01) ==
LOC: DI 13:00
PROVIDERS: ATTEND Registered Nurse
DX: M85.89 Other specified disorders of bone density and structure, multiple sites (principal)